=== PATIENT | male | born 1995 | race Caucasian/White ===

== ENCOUNTER → 2017-04-21 | Outpatient (CLI) | payer OTHER | LOC: KOH-I 10:00 | DX: S83.242A Other tear of medial meniscus, current injury, left knee, initial encounter (principal) | CPT/HCPCS: 73721 ==

== ENCOUNTER 2021-02-22 14:18 | Emergency (ER) | payer OTHER ==
[~2021-02-22 14:18] MED LIST: CLARINEX-D 121 EACH PO; FLONASE 0.05% N16 GM; PREDNISONE 50 M50 MG PO; ZANTAC150 MG PO; ZITHROMAX250 MG PO; ZOFRAN4 MG PO
[2021-02-22] MEDS ORDERED: IBUPROFEN600 MG PO (16:17)
== END 2021-02-22 16:54 | disposition home or self-care (01) ==
LOC: ER1 14:18
DX: S63.286A Dislocation of proximal interphalangeal joint of right little finger, initial encounter (principal); F17.210 Nicotine dependence, cigarettes, uncomplicated; W01.0XXA Fall on same level from slipping, tripping and stumbling without subsequent striking against object, initial encounter; Y92.009 Unspecified place in unspecified non-institutional (private) residence as the place of occurrence of the external cause
CPT/HCPCS: 26770; 73130; 99283